=== PATIENT | male | born 1985 | race African-American/Black ===

== ENCOUNTER 2018-08-24 00:27 | Emergency (ER) | payer OTHER ==
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
[2018-08-24 02:07] VITALS: BP 136/82; PULSE 89; TEMP 98.6; BMI 34.8
== END 2018-08-24 02:20 | disposition home or self-care (01) ==
LOC: JER 00:27
DX: S99.812A Other specified injuries of left ankle, initial encounter (principal); V03.90XA Pedestrian on foot injured in collision with car, pick-up truck or van, unspecified whether traffic or nontraffic accident, initial encounter; Y92.414 Local residential or business street as the place of occurrence of the external cause; Y93.89 Activity, other specified; Y99.8 Other external cause status
CPT/HCPCS: 73610-TC-LT-FY; 73630-TC-LT; 99282-25

== ENCOUNTER 2018-10-03 05:04 | Emergency (ER) | payer OTHER | END 2018-10-03 06:55 | disposition home or self-care (01) | LOC: JER 05:04 ==